=== PATIENT | male | born 1995 | race African-American/Black ===

== ENCOUNTER 2018-11-01 19:02 | Emergency (ER) | payer MEDICAID ==
[~2018-11-01] VITALS: Ht 185.4 cm; Wt 108.9 kg
[2018-11-01 19:10] VITALS: BP 109/61
[2018-11-01] MEDS ORDERED: diphenhydrAMINE HCL 25 MG CAPSULE ONE (19:27)
[2018-11-01] MEDS ORDERED: diphenhydrAMINE HCL 25 MG CAPSULE PO ONE (19:30)
== END 2018-11-01 20:04 | disposition home or self-care (01) ==
LOC: ER 19:11
DX: S50.861A Insect bite (nonvenomous) of right forearm, initial encounter (principal); S80.862A Insect bite (nonvenomous), left lower leg, initial encounter; S80.861A Insect bite (nonvenomous), right lower leg, initial encounter; J45.909 Unspecified asthma, uncomplicated; I10 Essential (primary) hypertension; F17.200 Nicotine dependence, unspecified, uncomplicated; Z88.0 Allergy status to penicillin; W57.XXXA Bitten or stung by nonvenomous insect and other nonvenomous arthropods, initial encounter; Y93.89 Activity, other specified; Y92.89 Other specified places as the place of occurrence of the external cause; Y99.8 Other external cause status
CPT/HCPCS: 99282; Q0163

== ENCOUNTER 2018-11-20 05:43 | Emergency (ER) | payer MEDICAID ==
[~2018-11-20] VITALS: Ht 188 cm; Wt 111.1 kg
--- NOTE | 2018-11-20 05:50 | NUR ---
PT BIBSELF C/O ABD PAIN X 2 DAYS, PT DESCRIBES PAIN "DULL." PT STATES THAT HE WANTS TO BE CLEARED FOR [facility]. PT NOT SI/HI. PT AXO4. RESPIRATIONS EVEN AND UNLABORED. PT AMBULATORY WITH STEADY GAIT. WILL CONTINUE TO MONITOR.
[2018-11-20] MEDS ORDERED: ACETAMINOPHEN ES 500 MG TABLET PO ONE (06:30)
[2018-11-20] MEDS ORDERED: DICYCLOMINE HCL 10 MG CAPSULE PO ONE ×3 (06:30→06:43)
[2018-11-20] MEDS ORDERED: MAG HYDROX/AL HYDROX/SIMETH 30 ML UDC PO ONE (06:30)
--- NOTE | 2018-11-20 06:40 | NUR ---
PT AMBULATORY WITH STEADY GAIT TO RESTROOM, URINE SAMPLE OBTAINED.
[2018-11-20] MEDS ORDERED: MAG HYDROX/AL HYDROX/SIMETH 30 ML UDC ONE (06:41)
[2018-11-20] MEDS ORDERED: ACETAMINOPHEN ES 500 MG TABLET ONE (06:41)
[2018-11-20 07:08] LABS: BASOPHILS # (AUTO) 0.1 /CMM (0.0-0.2); BASOPHILS % (AUTO) 0.6 % (0.0-2.0); EOSINOPHILS % (AUTO) 4.5 % (0.0-6.0); HEMATOCRIT 39 % (39-51); HEMOGLOBIN 13.5 g/dL (13.5-17.5); LYMPHOCYTES # (AUTO) 2.8 /CMM (0.8-4.8); LYMPHOCYTES % (AUTO) 26.7 % (20.0-44.0); MEAN CORPUSCULAR HGB CONC 35 g/dl (31.0-36.0); MEAN CORPUSCULAR VOLUME 96 fL (80-96); MONOCYTES # (AUTO) 0.9 /CMM (0.1-1.30); MONOCYTES % (AUTO) 8.7 % (2.0-12.0); NEUTROPHILS # (AUTO) 6.2 /CMM (1.8-8.9); NEUTROPHILS % (AUTO) 59.5 % (43.0-81.0); PLATELET COUNT (AUTO) 176 /CMM (150-450); RED BLOOD CELL COUNT(AUTO) 4.03 MIL/uL (4.5-6.0); WHITE BLOOD COUNT (AUTO) 10.5 K/uL (4.3-11.0)
--- NOTE | 2018-11-20 07:14 | NUR ---
REPORT GIVEN TO CHARLOTTE BAZAN FOR [facility].
[2018-11-20 07:21] LABS: APPEARANCE,URINE CLEAR (CLEAR); BILIRUBIN,URINE NEGATIVE (NEGATIVE); BLOOD, URINE NEGATIVE Ery/uL (NEGATIVE); COLOR,URINE YELLOW (YELLOW); KETONES,URINE NEGATIVE (NEGATIVE); LEUKOCYTE ESTERASE ,URINE NEGATIVE (NEGATIVE); NITRITE, URINE NEGATIVE (NEGATIVE); PROTEIN,URINE NEGATIVE (NEGATIVE); UGLUCOSE NEGATIVE (NEGATIVE); UROBILINOGEN,URINE 0.2 EU/dL (0.2)
[2018-11-20 07:36] LABS: CALCIUM, SERUM 8.6 mg/dL (8.5-10.1); CARBON DIOXIDE 28 mmol/L (21-32); CHLORIDE 104 mmol/L (98-107); CREATININE 1.1 mg/dL (0.6-1.3); GLUCOSE 92 mg/dL (74-106); POTASSIUM 3.9 mmol/L (3.5-5.1); SODIUM SERUM 138 mmol/L (136-145); UREA NITROGEN, BLOOD 15 mg/dL (7-18)
[2018-11-20 07:41] LABS: ALANINE AMINOTRANSFERASE 59 U/L (12-78); ALBUMIN 3.1 g/dL (3.4-5.0); ALCOHOL, BLOOD < 3 mg/dL (0-0); ALKALINE PHOSPHATASE 88 U/L (46-116); ASPARTATE AMINOTRANSFERASE 41 U/L (15-37); BILIRUBIN,DIRECT 0.1 mg/dL (0.0-0.2); BILIRUBIN,TOTAL 0.6 mg/dL (0.2-1.0); TOTAL PROTEIN, SERUM 6.3 g/dL (6.4-8.2)
[2018-11-20 07:42] LABS: SALICYLATE 1.9 mg/dL (2.8-20.0)
[2018-11-20 08:11] LABS: BAND % (MANUAL) 2 % (0.0-5.0); EOSINOPHILS % (MANUAL) 7 % (0-4); LYMPHOCYTES % (MANUAL) 20 % (16-48); MONOCYTES % (MANUAL) 8 % (0-11.0); NEUTROPHILS % (MANUAL) 63 (42-76)
[2018-11-20 08:16] LABS: ACETAMINOPHEN 0 ug/ml (10-30)
--- NOTE | 2018-11-20 08:24 | NUR ---
Social service consult requested by Dr. Pastor for pt. wanting to go voluntary to [facility]. Pt. is a 23 year old male with a history of depression, bipolar disorder and Schizoaffective disorder. SW met with pt. bedside. Pt. is alert and oriented x 4. Pt. is cooperative with SW during the assessment. Pt. currently lives with a friend. Pt's emergency contact is his brother Wood . Pt. stated, "I am hearing voices that are telling me to hurt other people." Pt. is requesting voluntary psychiatric admission to [facility]. Pt. has one prior history of psychiatric hospitalization a few months ago in [place]. Currently pt. does not have a psychiatrist and feels like he needs medication adjustment as he is feeling "manic." Pt. is currently taking Abilify and Zoloft. Pt. denies and alcohol and drug use and smokes 1/2 a pack of cigarettes daily. TYLOR to fax clinicals to Sailaja in intake at [facility] .
--- NOTE | 2018-11-20 08:39 | NUR ---
TYLOR faxed clinical referral packet to intake at [facility] .
--- NOTE | 2018-11-20 10:12 | NUR ---
TYLOR called Sailaja in intake at [facility] to follow up regarding pt. being accepted to [facility]. Per Sailaja pt. will be accepted under Dr. Bose and transport will be provided after 11AM. Sailaja requested the physician note to be faxed stating, " Pt is medically cleared." TYLOR contacted HORTENSIA Gee and informed him regarding note needs to be faxed and updated him with aforementioned information.
--- NOTE | 2018-11-20 13:15 | NUR ---
[facility], will call back with ambulance eta
--- NOTE | 2018-11-20 13:34 | NUR ---
30 MIN ETA FOR [facility]
--- NOTE | 2018-11-20 14:02 | NUR ---
called for report, per nurse in unit2, "can u call back in 20 mins, we are very busy"
--- NOTE | 2018-11-20 14:27 | NUR ---
report given to simone nurse at [facility]. pt tranposrted to [facility] via private ambulance, vss, nad noted. report given to staff
[2018-11-20 14:30] VITALS: BP 139/80
== END 2018-11-20 14:52 | disposition other institution (70) ==
LOC: ER 05:45
DX: F31.9 Bipolar disorder, unspecified (principal); R45.850 Homicidal ideations; F12.90 Cannabis use, unspecified, uncomplicated; R10.32 Left lower quadrant pain; I10 Essential (primary) hypertension; J45.909 Unspecified asthma, uncomplicated; F41.9 Anxiety disorder, unspecified; Z88.0 Allergy status to penicillin
CPT/HCPCS: 36415; 80048; 80076; 80305; 80307; 80329; 81001; 83690; 85025; 99285; G0480; 81000-TC